=== PATIENT | female | born 1930 | race Caucasian/White ===

== ENCOUNTER → 2016-12-07 | Outpatient (CLI) | payer MEDICARE, BC ==
[~2016-12-07] MED LIST: LEVOTHYROXINE; LIPITOR; XANAX; ZOLOFT
--- NOTE | 2016-12-07 15:04 | RADRPT ---
PROCEDURE: XR left knee. CLINICAL INDICATION: Knee pain TECHNIQUE: AP weightbearing, lateral weightbearing and sunrise views are available for review. COMPARISON: None available FINDINGS: There is mild narrowing of the medial tibial femoral compartment. There is chondrocalcinosis with me dial meniscal calcification. The osseous structures are otherwise normal in mineralization, archite cture and alignment. No fractures are identified. No osseous lesions are identified. The soft ti ssues are unremarkable. IMPRESSION: Mild narrowing of the medial tibial femoral compartment (query osteoarthrosis) Chondrocalcinosis RPTAT: [facility] .Gume Evans MD, MD Date Time Electronically viewed and signed by .Gume Evans MD, on 12/07/2016 15:04 .B/
--- NOTE | 2016-12-07 20:48 | HKNOTE ---
DATE OF SERVICE: The patient was last seen by me in 04/2016 complaining of pain in her left knee. I gave her a corti sone injection, which gave her excellent relief until about a week ago. At her last visit, I recomm ended that if the knee did not settle down, she should get an MRI scan, but she states that the knee "settled down enough." PRESENT COMPLAINTS: The patient gets pain in the knee with practically every step that she takes. She can walk as far as she likes, but she gets pain with every step. The knee does not swell or loc k or feel unstable. Note that I did 2 knee replacements on her , Mr. Ferrell, 15 years ago and "they are still perfect." PHYSICAL EXAMINATION: VITAL SIGNS: Height 5 feet 2 inches, weight 126 pounds, blood pressure 110/55, temperature 98.3. LEFT KNEE: The left knee shows normal alignment. Full range. Active and passive extension is 0 de grees. Active and passive flexion is full. Marked pain on forced flexion and extension. The media l and lateral collateral ligaments and cruciate ligaments are intact. Kavya test is negative. Th ere is no effusion, tenderness, scarring, or cysts. 6+ crepitus in the knee. The patella tracks no rmally. There is no tenderness on the articular surface of the patella or in the patellar groove. The Q angle is normal. IMAGING: Plain x-rays of her right knee obtained today show moderate degenerative changes in the me dial compartment. There is moderate narrowing of the joint space. There are no osteophytes, subcho ndral sclerosis, or intraosseous cysts. 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 MANAGEMENT: The patient was advised that she can receive cortisone injections into the knee every 3 months or so if she needs it and eventually she will need to have a knee replacement. The patient is 86 years old and she looks remarkably good. Under sterile conditions, given injection of 2 mL of Kenalog and 6 mL of 2% lidocaine into the knee and she will be seen again as necessary. Dictated By: TANIA ART/KATIE Conf#: [id number] DID#: [id number]
== END | disposition home or self-care (01) ==
LOC: HKI 14:30
DX: M17.12 Unilateral primary osteoarthritis, left knee (principal)
CPT/HCPCS: 20610; G0463

== ENCOUNTER → 2017-01-11 | Outpatient (CLI) | payer MEDICARE, BC ==
--- NOTE | 2017-01-19 07:14 | HKNOTE ---
DATE OF SERVICE: 01/11/2017 INTERVAL HISTORY: Patient comes in with the MRI scan of her left knee for review. The MRI was obtained on 01/07/2017. The MRI is reported by Dr. Silva showing "complex tearing involving the posterior horn and medial meniscus including a flap tear component which extends to the inferior pronator recess. There is also a large, radially oriented tear component posteriorly, as well as a horizontal oblique tear. Mild degenerative arthritis affects the medial compartment with grade IV chondral loss and subchondral cystic changes of the bone marrow. 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 The cortisone injection I gave to this patient at her last visit lasted for about 2 weeks. The knee does not lock nor is it unstable. DISCUSSION: The patient does not have any other classic symptoms of an internal derangement of the knee. The cortisone injection into her knee gave her no relief. I have recommended that viscosupplementation be tried. Under sterile conditions, she was given an injection of Monovisc and 2 percent lidocaine into the knee. PLAN: She will be seen again as necessary for further evaluation and treatment. We spent some time discussing the fact that she will need to have a knee replacement sooner or later. Dictated By: Ridge Lynn MD /pancho/cherie /Document#: [id number]
== END | disposition home or self-care (01) ==
LOC: HKI 14:56
DX: S83.232A Complex tear of medial meniscus, current injury, left knee, initial encounter (principal); X58.XXXA Exposure to other specified factors, initial encounter; M17.12 Unilateral primary osteoarthritis, left knee; M22.42 Chondromalacia patellae, left knee
CPT/HCPCS: 20610; J7327

== ENCOUNTER → 2017-03-10 | Outpatient (CLI) | payer MEDICARE, BC ==
--- NOTE | 2017-03-10 12:12 | PN ---
Date/Time of Note Date/Time of Note DATE: 03/10/17 TIME: 12:00 Outpatient Progress Note Chief Complaint Left knee pain HPI 87-year-old female presents today for follow-up regarding ongoing left knee pain. Patient was last seen on 01/11/2017 were Montevista injection was performed. Patient experienced some relief for about 3-4 weeks before pain returned to normal. Pain is constant and patient states that it is off and on between moderate and severe. Patient denies any falls or injury since she was last seen. Surgery was contraindicated with this patient on last examination with Dr. Lynn given patient's age. She continues with ongoing pain primarily with weightbearing activities. Use a single-point cane for assisted ambulation. Patient also mentions that she has had been having pain at the hip. When asked , the direct location she points over the greater trochanteric region. Pain is reproducible when she touches that region. Review of Systems Const: No Fever, no chills, no Fatigue, normal appetite, no diaphoresis. Resp: No SOB, no wheezing, no chest pain. CV: No chest pain, no palpitaions, no VALENTINE. Physical Exam Blood pressure is 124/59, temperature is 98.1, pulse is 55, respiratory rate is 12, height is 5 foot 2 inches, weight is 126 pounds General Appearance: well-developed, well-nourished, in no acute distress. Left knee: Gait is abnormal and antalgic. Uses assistive ambulatory device in regards to single-point cane. Patient is able to fully extend and is able to flex up to 120 on examination today. Mild crepitus primarily to the medial compartment. Normal sensory examination to light touch. 5/5 strength on resistance with flexion and extension. Imaging: X-ray to the left knee from previous visit in December showing moderate joint space narrowing to the left knee with moderate to severe narrowing along the medial compartment.Osteoarthritic changes. Allergies Coded Allergies: No Known Allergies (Verified Allergy, 11/16/11) Assessment/Plan Problems: (1) Greater trochanteric bursitis of left hip (2) Osteoarthritis of left knee * Prescription for naproxen 500 mg twice daily #60 tablets with 2 refills provided today. * Lengthy discussion regarding progression of degenerative osteoarthritis had with patient and patient's today. * Patient has had Monovisc injection on 01/11/2017 which was unsuccessful. Direct consult with Dr. Lynn was had today to see if it is okay to perform cortisone injection to the left knee. Dr. Lynn has given approval to perform cortisone injection to the left knee as well as small amount of cortisone with local anesthesia to the greater trochanteric region for greater trochanteric bursitis. 6 cc of 0.25% Marcaine mixed with 2 cc of 40 mg per male Kenalog injected into the knee. No complications were experienced. Patient was observed for 5 minutes before cleared. * Dr. Lynn is also agreed to greater trochanteric injection. 1 cc of Kenalog 40 mg per male along with 5 cc of 0.25% Marcaine injected in 3 areas along the greater trochanteric bursitis were patient was experiencing the most pain in regards to tenderness to palpation.Observed for 3-5 minutes before being cleared for discharge. * Follow-up on as-needed basis. Patient made aware that she would need to wait a minimum of 3-4 months before discussion into possible repeat injection can be had and she states understanding. Dr. Lynn was present for examination and agrees with plan. Medications Home Meds Reported Medications [Levothyroxine] No Conflict Check, DAILY 11/16/11 [Lipitor] No Conflict Check, DAILY 11/16/11 [Xanax] No Conflict Check, DAILY 11/16/11 [Zoloft] No Conflict Check, DAILY 11/16/11 CARYN SHERMAN PA-C Mar 10, 2017 12:12
== END | disposition home or self-care (01) ==
LOC: HKI 10:59
DX: M70.62 Trochanteric bursitis, left hip (principal); M17.12 Unilateral primary osteoarthritis, left knee
CPT/HCPCS: 20610

== ENCOUNTER → 2017-04-19 | Outpatient (CLI) | payer MEDICARE, BC ==
--- NOTE | 2017-04-20 04:32 | HKNOTE ---
DATE OF SERVICE: 04/19/2017 MAIN COMPLAINT: Pain in the left knee. HISTORY OF MAIN COMPLAINT: The patient is an 87-year-old female who was given a Monovisc injection into her knee in 02/2017, comes in requesting a repeat injection. She had 2 cortisone injections pr ior to that which did not help her as much as the Monovisc. IMAGING: X-rays of 12/08/2016 were reviewed. These show narrowing of the medial joint space of the knee. Certainly not [id number]. Certainly not endstage arthritis. No secondary bone changes. MANAGEMENT: The patient is advised that it is too soon for her to have another Monovisc injection. She declined a cortisone injection. She will return in 3 months' time for a repeat Monovisc inject ion. Dictated By: TANIA ART/KATIE Conf#: [id number] DID#: [id number]
== END | disposition home or self-care (01) ==
LOC: HKI 10:10
DX: M25.562 Pain in left knee (principal)
CPT/HCPCS: G0463

== ENCOUNTER → 2017-07-12 | Outpatient (CLI) | END | disposition home or self-care (01) ==

== ENCOUNTER → 2017-07-29 | Outpatient (CLI) | END | disposition home or self-care (01) ==

== ENCOUNTER → 2017-09-02 | Outpatient (CLI) | END | disposition home or self-care (01) ==

== ENCOUNTER → 2017-09-09 | Outpatient (CLI) | END | disposition home or self-care (01) ==

== ENCOUNTER → 2017-09-16 | Outpatient (CLI) | END | disposition home or self-care (01) ==

== ENCOUNTER → 2018-01-23 | Outpatient (CLI) | END | disposition home or self-care (01) ==